=== PATIENT | female | born 1945 | race Two or more races ===

== ENCOUNTER 2024-03-14 07:06 | Outpatient (CLI) | payer OTHER | END 2024-03-14 07:13 | disposition home or self-care (01) | LOC: NUCLEAR 07:06 | PROVIDERS: ATTEND Internal Medicine | DX: I20.1 Angina pectoris with documented spasm (principal); I67.9 Cerebrovascular disease, unspecified; R07.9 Chest pain, unspecified | CPT/HCPCS: 78452; 93017; A9500; J0153 ==